=== PATIENT | male | born 1945 | race Caucasian/White ===

== ENCOUNTER 2020-02-12 12:49 | Day surgery (SDC) | payer MEDICARE, OTHER, SELFPAY ==
[2020-02-12] VITALS (7 sets, daily range): BP systolic 116–155; BP diastolic 65–84; PULSE 90–93; RESP 16–18; TEMP 36.7–37.5; O2SAT 90–95; BMI 36.1
--- NOTE | 2020-02-12 | FORE_PTH ---
PATIENT: NICHELLE DORSEY LOC: [facility] [place] U#:[id number] AGE/SX: 74/M ROOM: RE02/12/[address]: Dr. Tucker Suresh MD : 1945 BED: DIS: 02/12/2020 SPEC #: [id number] RECD: 02/15/20 07:57 STATUS: SANA REWaqas #: [id number] MYRA: 02/12/20 00:[address]: Tucker Suresh DEPT: SURGICAL PATHOLOGY RECD BY: Gaston Pires ENTERED: 02/15/20 08:23 SP TYPE: FOREIGN B GEMINI DR: Dr. Bj Vergara MD Tissues: FOREIGN BODY Procedures: Surgery Specimen Level I HEADER OPERATION: Battery change, spinal cord stimulator PRE-OP DIAGNOSIS: Lumbar region radiculopathy; post laminectomy syndrome; need for battery change TISSUE SUBMITTED: Spinal cord stimulator battery MICROSCOPIC DIAGNOSIS A metallic battery, clinically spinal cord stimulator battery. SJ:melani 02/15/20 MICROSCOPIC DESCRIPTION Slides are reviewed. GROSS DESCRIPTION Received in fixative is one container labeled with the patient's name and designated spinal cord stimulator battery. The specimen consists of a metallic battery measuring 5.5 x 4.5 x 1 cm. The inscription on the battery says [employer] precision IPG motor [id number] this side up [id number]. The specimen is for gross identification only. / SJ:melani 02/15/20 CPT: 57943
[2020-02-12 14:11] LABS: Bedside Glucose 236 mg/dL (70-110)
[2020-02-12] MEDS: Lactated Ringers 1,000 ML 100 ML IV (14:15)
[2020-02-12] MEDS: Vancomycin IV 1,000 MG/200 ML BAG 200 MG IV (14:16)
--- NOTE | 2020-02-12 15:05 | RAD_ITS ---
STUDY: X-RAY - LUMBAR SPINE REASON FOR EXAM: Male, 74 years old. battery change, spinal cord stimulator TECHNIQUE: Single C-arm view(s) of the lumbar spine were obtained. 6.1 seconds fluoroscopy time. COMPARISON: None FINDINGS: Very limited frontal single view of the thoracolumbar spine shows a single laterally running up into the thoracic spine. Correlate with procedure note. Electronically Signed: Talat Luong MD at 16:54 EDT , Service support , RAD/Spine 1 View Any Level
[2020-02-12] MEDS: Bupiv/Epi 0.25% 30 ML Vial (15:21)
== END 2020-02-12 16:38 | disposition home or self-care (01) ==
LOC: SDC 13:09 → AC 13:09
PROVIDERS: Referring Provider Anesthesiology Pain Medicine; Visit Provider Anesthesiology Pain Medicine
PROC: (CPT 63688; principal; 2020-02-12 14:35)
DX: Z45.42 Encounter for adjustment and management of neurostimulator (principal); M96.1 Postlaminectomy syndrome, not elsewhere classified; G89.4 Chronic pain syndrome; M54.16 Radiculopathy, lumbar region; M54.17 Radiculopathy, lumbosacral region; I10 Essential (primary) hypertension; I25.2 Old myocardial infarction; M19.90 Unspecified osteoarthritis, unspecified site; E11.40 Type 2 diabetes mellitus with diabetic neuropathy, unspecified; K44.9 Diaphragmatic hernia without obstruction or gangrene; K21.9 Gastro-esophageal reflux disease without esophagitis; J45.909 Unspecified asthma, uncomplicated; E78.00 Pure hypercholesterolemia, unspecified; Z87.19 Personal history of other diseases of the digestive system; Z86.73 Personal history of transient ischemic attack (TIA), and cerebral infarction without residual deficits; Z85.828 Personal history of other malignant neoplasm of skin; Z95.1 Presence of aortocoronary bypass graft; Z79.84 Long term (current) use of oral hypoglycemic drugs; Z79.82 Long term (current) use of aspirin; Z79.899 Other long term (current) drug therapy
CPT/HCPCS: 63685; 72020; 76000; 82962; 88300; C1820; J7120